=== PATIENT | male | born 1995 | race Caucasian/White ===

== ENCOUNTER 2025-05-06 21:04 | Emergency (ER) | payer MEDICAID, OTHER ==
[~2025-05-06] VITALS: Ht 182.9 cm; Wt 79.5 kg
[2025-05-06 21:06] VITALS: BP 139/77; TEMP 97.9; O2SAT 99
[2025-05-06] MEDS ORDERED: MEDR4PAK PO (21:33)
[2025-05-06] MEDS ORDERED: TIZA4CAP PO (21:33)
[2025-05-06] MEDS: KETOROLAC 30 MG/ML 1 ML VIAL IM ONE (21:44)
== END 2025-05-06 22:10 | disposition home or self-care (01) ==
LOC: M ED 21:04
DX: M54.50 Low back pain, unspecified (principal); Z79.899 Other long term (current) drug therapy
CPT/HCPCS: 72110; 96372; 99283; J1885